=== PATIENT | female | born 1965 | race Caucasian/White ===

== ENCOUNTER 2022-02-10 13:28 | Day surgery (SDC) | payer BC ==
[2022-02-10] MEDS ORDERED: LIDOCAINE HCL 2% 100 MG/5 ML IJ ONE (13:29)
[2022-02-10] MEDS ORDERED: DIPRIVAN 200 MG/20 ML IV ONE (14:58)
[2022-02-10] MEDS ORDERED: Lactated Ringers 1,000 ML IV ONE (15:49)
--- NOTE | 2022-02-11 08:47 | XRAY ---
Indication: Bilateral L4-S1 MBB. Intraoperative fluoroscopy was provided for 22 seconds. 5 digital spot images submitted for interpretation demonstrates posterior needle tips projecting over the left L4-S1 and right L4-L5 nerve roots. Correlate with intraoperative findings/report.
--- NOTE | 2022-02-11 09:20 | XRAY ---
22 seconds fluoroscopy time in surgery for bilateral L4-S1 MBB.
== END 2022-02-10 15:20 | disposition home or self-care (01) ==
LOC: SDC-PAIN 13:28
PROVIDERS: ATTEND Psychiatry & Neurology Pain Medicine
DX: M47.816 Spondylosis without myelopathy or radiculopathy, lumbar region (principal); Z79.899 Other long term (current) drug therapy
CPT/HCPCS: 64493; 64494; 72020; 77002; J2704

== ENCOUNTER 2022-03-31 10:46 | Day surgery (SDC) | payer BC, OTHER ==
[2022-03-31] MEDS ORDERED: Marcaine Mpf 0.5% Vial 30 Ml IJ ONE (10:47)
[2022-03-31] MEDS ORDERED: Depo-Medrol 40 MG/ML IM ONE (10:47)
[2022-03-31] MEDS ORDERED: DIPRIVAN 200 MG/20 ML IV ONE (12:50)
[2022-03-31] MEDS ORDERED: Lactated Ringers 1,000 ML IV ONE (14:22)
--- NOTE | 2022-03-31 14:34 | XRAY ---
Indication: Bilateral L4-S1 MBB. Intraoperative fluoroscopy provided for 11 seconds. Single digital spot image submitted for interpretation demonstrates posterior needle tips projecting over the expected left and right L4-S1 nerve roots. Correlate with intraoperative findings/report.
--- NOTE | 2022-04-02 09:02 | XRAY ---
11 seconds fluoroscopy time in surgery for bilateral L4-S1 MBB.
== END 2022-03-31 13:20 | disposition home or self-care (01) ==
LOC: SDC-PAIN 10:46
PROVIDERS: ATTEND Psychiatry & Neurology Pain Medicine
DX: M47.816 Spondylosis without myelopathy or radiculopathy, lumbar region (principal); Z79.899 Other long term (current) drug therapy
CPT/HCPCS: 64493; 64494; 72020; 77002; J1030; J2704

== ENCOUNTER 2022-04-21 13:28 | Day surgery (SDC) | payer BC, OTHER ==
[2022-04-21] MEDS ORDERED: Xylocaine 1% Vial 30 ML PF IJ ONE (13:29)
[2022-04-21] MEDS ORDERED: BUPIVACAINE 0.5% VIAL IJ ONE (13:29)
[2022-04-21] MEDS ORDERED: Depo-Medrol 40 MG/ML IM ONE (13:29)
[2022-04-21] MEDS ORDERED: DIPRIVAN 200 MG/20 ML IV ONE (15:26)
[2022-04-21] MEDS ORDERED: Lactated Ringers 1,000 ML IV ONE (15:50)
--- NOTE | 2022-04-21 16:45 | XRAY ---
Indication: Right L4-S1 RFA. Intraoperative fluoroscopy provided for 19 seconds. 4 digital spot image submitted for interpretation demonstrates posterior needle tips projecting over the expected right L4-S1 nerve roots. Correlate with intraoperative findings/report.
--- NOTE | 2022-04-21 16:58 | XRAY ---
19 seconds fluoroscopy time in surgery for right L4-S1 RFA.
== END 2022-04-21 16:00 | disposition home or self-care (01) ==
LOC: SDC-PAIN 13:28
PROVIDERS: ATTEND Psychiatry & Neurology Pain Medicine
DX: M47.816 Spondylosis without myelopathy or radiculopathy, lumbar region (principal); Z79.899 Other long term (current) drug therapy
CPT/HCPCS: 64635; 64636; 72100; 77002; J1030; J2001; J2704

== ENCOUNTER 2022-04-28 13:18 | Day surgery (SDC) | payer BC, OTHER ==
[2022-04-28] MEDS ORDERED: BUPIVACAINE 0.5% VIAL IJ ONE (13:19)
[2022-04-28] MEDS ORDERED: Xylocaine 1% Vial 30 ML PF IJ ONE (13:19)
[2022-04-28] MEDS ORDERED: Decadron 4 MG INJ IV ONE (13:19)
[2022-04-28] MEDS ORDERED: DIPRIVAN 200 MG/20 ML IV ONE ×2 (14:21→15:19)
--- NOTE | 2022-04-28 14:56 | XRAY ---
Indication: Left L4-S1 RFA. Intraoperative fluoroscopy provided for 11 seconds. 4 digital spot images submitted for interpretation demonstrates posterior needle tips projecting over the expected left L4-S1 nerve roots. Correlate with intraoperative findings/report.
[2022-04-28] MEDS ORDERED: Lactated Ringers 1,000 ML IV ONE (15:03)
--- NOTE | 2022-04-30 11:09 | XRAY ---
11 seconds fluoroscopy time used in surgery for left L4-S1 RFA.
== END 2022-04-28 14:45 | disposition home or self-care (01) ==
LOC: SDC-PAIN 13:18
PROVIDERS: ATTEND Psychiatry & Neurology Pain Medicine
DX: M47.816 Spondylosis without myelopathy or radiculopathy, lumbar region (principal); Z79.899 Other long term (current) drug therapy
CPT/HCPCS: 64635; 64636; 72100; 77002; J1100; J2001; J2704